=== PATIENT | female | born 1980 | race Caucasian/White ===

== ENCOUNTER 2016-09-11 21:44 | Emergency (ER) | payer OTHER ==
[~2016-09-11] VITALS: Ht 157.5 cm; Wt 92.4 kg
[~2016-09-11 21:44] MED LIST: ACULAR 0.5100 DROP/5 BOTH EYES; ASMANEX TW200 MICRO1 IH; ERYTHROMYC1 APPLICAT LEFT EYE; FLUTICASONE PRO16 GM BOTH NARES
[2016-09-12 00:27] LABS: EOSINOPHIL (%) 2.9 % (0-5); EOSINOPHIL COUNT 0.3 K/uL (0-0.3); HEMATOCRIT 38.7 % (36.0-46.0); IMMATURE GRANULOCYTE (%) 0.3 % (0.0-0.7); IMMATURE GRANULOCYTE COUNT 0.3 K/uL; LYMPHOCYTE COUNT 3.7 K/uL (1.0-2.8); MCH 28.9 PG (29.0-34.0); MCHC 33.6 G/DL (30.0-36.0); MEAN PLAT.VOLUME 9.9 uM^3 (9.5-12.4); MONOCYTE (%) 6.6 % (3-12); MONOCYTE COUNT 0.6 K/uL (0-0.8); NEUTROPHIL (%) 50.4 % (45-76); NEUTROPHIL COUNT 4.7 K/uL (1.8-6.4); PLATELET COUNT 253 K/uL (156-360); RBC DIS.WIDTH-CV 12.7 % (11.8-14.6); RBC DIS.WIDTH-SD 38.5 % (39-53); WHITE BLOOD COUNT 9.3 K/uL (4.1-10.2)
[2016-09-12 00:37] LABS: CHLORIDE 109 mEq/L (99-109); POTASSIUM 4.1 mEq/L (3.7-5.4); SODIUM 141 mEq/L (136-147)
[2016-09-12 00:38] LABS: GLUCOSE 128 mg/dL (70-99)
[2016-09-12 00:40] LABS: ANION GAP 11 MEQ/L (2-14)
[2016-09-12 00:42] LABS: GFR ESTIMATE (CALCULATED) > 59 mL/min/
[2016-09-12 00:43] LABS: UREA NITROGEN (BUN) 7 mg/dL (9-23)
[2016-09-12 00:52] LABS: QUANTITATIVE HCG < 4.0 MIU/ML
[2016-09-12 02:40] VITALS: BP 108/84
== END 2016-09-12 02:48 | disposition home or self-care (01) ==
LOC: EME 21:44
PROVIDERS: Emergency Medicine
DX: R51 Headache (principal); R11.0 Nausea; C71.9 Malignant neoplasm of brain, unspecified; Z85.118 Personal history of other malignant neoplasm of bronchus and lung; J45.909 Unspecified asthma, uncomplicated
CPT/HCPCS: 70450; 71010; 80048; 84702; 85025; 99281; 99283